=== PATIENT | female | born 1980 | race Caucasian/White ===

== ENCOUNTER → 2017-02-07 | Outpatient (CLI) | payer BC ==
--- NOTE | 2017-02-07 12:47 | REP ---
Clinical: Trauma. Technique: Frontal view of the chest with multiple views of the right and left hemithorax. Findings: Frontal view of the chest demonstrates no acute cardiopulmonary process. Multiple views of the bilateral hemithoraces demonstrates no obvious acute rib fracture or pathology. Evidence for prior cholecystectomy. Impression: Normal bilateral rib series. No obvious rib fracture identified. Signed by Kory Rizvi MD 02/07/2017 12:38 P
== END ==
LOC: M LRY 12:06
PROVIDERS: ATTEND Nurse Practitioner Family
DX: R07.89 Other chest pain (principal)

== ENCOUNTER → 2017-07-12 | Outpatient (REF) | payer BC | LOC: M SFHCLERA 11:57 | DX: J02.9 Acute pharyngitis, unspecified (principal) ==

== ENCOUNTER → 2018-11-27 | Outpatient (REF) ==
--- NOTE | 2018-11-27 12:11 | REP ---
PARTIAL LUMBAR SPINE SERIES: Three views. HISTORY: Degenerative disc disease. FINDINGS: There are surgical clips in the right upper quadrant of the abdomen consistent with a previous cholecystectomy. Bowel gas pattern is normal. An IUD is seen centrally in the pelvis in a configuration suggesting retroverted uterus. Psoas margins are symmetric. Sacrum and SI joints are intact. Pedicles and posterior elements are intact in the lumbar spine. Lumbar vertebral body heights are preserved. There is mild disc space narrowing at L3-4 with mild anterior osteophyte formation. Other disc spaces are maintained in the lumbar spine. There is no evidence of spondylolysis or spondylolisthesis. IMPRESSION: Mild degenerative disc disease changes at L3-4. IUD and post cholecystectomy clips noted. Electronically Signed by Nick Dalal MD 11/27/2018 03:26 P
--- NOTE | 2018-11-27 12:12 | REP ---
RIGHT FOREARM: Two views. HISTORY: Degenerative disease. FINDINGS: AP and lateral views of the right forearm show overall normal mineralization. Bones, joints and soft tissues are unremarkable. IMPRESSION: Negative radiographs of the right forearm. No significant change from July 28, 2013 prior wrist radiographs. Electronically Signed by Nick Dalal MD 11/27/2018 03:26 P
--- NOTE | 2018-11-27 12:13 | REP ---
RIGHT WRIST: Four views. HISTORY: Degenerative disease. Comparison wrist radiographs are from July 28, 2013. FINDINGS: Overall mineralization pattern is normal. Bones, joints and soft tissues are unremarkable. Joint spaces are preserved. IMPRESSION: No radiographic abnormality. Electronically Signed by Nick Dalal MD 11/27/2018 03:26 P
== END ==
LOC: M SMT 10:01
PROVIDERS: ATTEND Internal Medicine
DX: Z00.00 Encounter for general adult medical examination without abnormal findings (principal)

== ENCOUNTER → 2019-03-07 | Outpatient (REF) | payer BC | LOC: M LAB LCGH 15:54 | PROVIDERS: ATTEND Physician Assistant | DX: L57.0 Actinic keratosis (principal) ==

== ENCOUNTER → 2020-01-20 | Outpatient (REF) | payer BC ==
[2020-01-20 10:35] LABS: BASO # 0.1 10^3/uL (0.0-0.2); BASO % 0.6 % (0.0-1.0); EOS # 0.1 10^3/uL (0.0-0.5); EOS % 0.8 % (0.0-3.0); HEMOGLOBIN 13.9 g/dl (12.0-15.5); LYMPH % 29.3 % (24.0-44.0); MEAN CORPUSCULAR HEMOGLOBIN 30.9 pg (27.0-33.0); MEAN CORPUSCULAR HGB CONC 32.3 g/dl (32.0-36.5); MEAN CORPUSCULAR VOLUME 95.6 fl (80.0-96.0); MONO # 1.4 10^3/uL (0.0-0.8); MONO % 8.4 % (0.0-5.0); NEUTROPHILS # 10.2 10^3/uL (1.5-8.5); NEUTROPHILS % 60.5 % (36.0-66.0); PLATELET COUNT, AUTOMATED 251 10^3/uL (150-450)
[2020-01-20 10:40] LABS: WHITE BLOOD COUNT 16.9 10^3/uL (4.0-10.0)
[2020-01-20 11:08] LABS: ALBUMIN 4.3 GM/DL (3.2-5.2); ALT/SGPT 21 U/L (12-78); BILIRUBIN,TOTAL 0.7 MG/DL (0.2-1.0); BLOOD UREA NITROGEN 9 MG/DL (7-18); CALCIUM LEVEL 9.3 MG/DL (8.5-10.1); CARBON DIOXIDE LEVEL 27 MEQ/L (21-32); CHLORIDE LEVEL 106 MEQ/L (98-107); CHOLESTEROL LEVEL 188 MG/DL (<200); CHOLESTEROL RISK RATIO 2.937 (<5); CREATININE FOR GFR 0.87 MG/DL (0.55-1.30); GLOMERULAR FILTRATION RATE > 60.0 (>60); GLUCOSE, FASTING 81 MG/DL (70-100); HDL CHOLESTEROL 64 MG/DL (>40); LDL CHOLESTEROL 106 MG/DL (<100); NON-HDL-C 124 MG/DL; POTASSIUM SERUM 3.5 MEQ/L (3.5-5.1); SODIUM LEVEL 140 MEQ/L (136-145); TOTAL PROTEIN 7.1 GM/DL (6.4-8.2); TRIGLYCERIDES LEVEL 92 MG/DL (<150)
== END ==
LOC: M SFHCPLAZ 08:55
PROVIDERS: ATTEND Physician Assistant
DX: L40.9 Psoriasis, unspecified (principal)